=== PATIENT | female | born 1950 | race Caucasian/White ===

== ENCOUNTER → 2017-11-17 | Day surgery (SDC) | payer MEDICARE ==
[2017-11-15 11:16] LABS: BASOPHILS % 0.3 % (0.0-1.0); EOSINOPHILS # (AUTO) 0.2 (0.0-0.4); EOSINOPHILS % 3.3 % (0.0-6.0); HEMATOCRIT 33.3 % (34.2-44.1); HEMOGLOBIN 11.2 g/dL (12.0-16.0); LYMPHOCYTES # (AUTO) 2.1 (1.0-3.2); MEAN CORPUSCULAR HEMOGLOBIN 32.1 pg (28-32); MEAN CORPUSCULAR HGB CONC 33.6 g/dL (31-35); MEAN CORPUSCULAR VOLUME 95.4 fL (81-99); MONOCYTES # (AUTO) 0.4 (0.2-0.8); MONOCYTES % 6.8 % (4.4-11.3); NEUTROPHILS % 52.4 % (38.7-80.0); PLATELET COUNT 192 x10e3/uL (140-360); RED BLOOD COUNT 3.49 x10e6/uL (3.6-5.1); RED CELL DISTRIBUTION WIDTH 13.8 % (11.7-14.4)
[2017-11-15 11:48] LABS: ANION GAP 12.2 mmol/L (8-16); CALCIUM 9.6 mg/dL (8.4-10.2); CREATININE, SERUM 0.95 mg/dL (0.57-1.11); POTASSIUM 5.2 mmol/L (3.5-5.1)
--- NOTE | 2017-11-15 11:51 | Diagnostic Imaging Report ---
PROCEDURE: Frontal and lateral views of the chest. COMPARISON: None available. INDICATIONS: PRE-OP KNEE FINDINGS: Lines/tubes: None. Lungs: The lungs are well inflated and clear. There is no evidence of pneumonia or pulmonary edema. Pleura: There is no pleural effusion or pneumothorax. Heart and mediastinum: The heart and the mediastinum are normal. Bones: No acute bony abnormality. Right humeral head sclerotic focus, likely a bone island. IMPRESSION: 1. No acute cardiopulmonary disease. Dictated by: Bernard Peres M.D. on 11/15/2017 at 11:52 Electronically approved by: Bernard Peres M.D. on 11/15/2017 at 11:52
[~2017-11-17] MED LIST: ASPIRIN81 MG PO; BUPIVACAINE 0.5%/EPI 30 ML SDV INJ ONE; BYDUREON2 MG IM; CALCIUM 500 +1 EAC2 PO; CEFAZOLIN SOD 2 GM/D5W 50ML 50 ML IV ONE; CELEBREX200 MG PO; CRANBERRY CONC1 EAC1 PO; DEXAMETHASONE SOD PHOS INJ 4 MG/ML VIAL ONE; FENTANYL CITRATE/PF 100MCG/2 ML INJ ONE; FUROSEMIDE; GLIMEPIRIDE; GLIMEPIRIDE1 MG PO; GLIMEPIRIDE2 MG PO; LIDOCAINE HCL 2% LOCAL INJ 5 ML SDV VIAL INJ ONE; LISINOPRIL; LISINOPRIL-HCT1 EAC2 PO; MAGNESIUM250 MG PO; METFORMIN HCL500 MG PO; METOCLOPRAMIDE HCL 10 MG/2ML VIAL ONE; MIDAZOLAM HCL 2 MG/2 ML VIAL ONE; MULTIVITAMINS1 EAC7 PO; OMEGA 3 FISH O1 EACH PO; OMEPRAZOLE40 MG PO; ONDANSETRON HCL INJ 2 MG/ML VIAL ONE; PHENYLEPHRINE HCL 1% 10 MG/ML VIAL ONE; PIOGLITAZONE15 MG PO; POTASSIUM GLUCONATE PO; POTASSIUM99 M1 PO; PRILOSEC; PROPOFOL IV EMULSION 10 MG/ML 50 ML VIAL ONE; SEVOFLURANE INHAL SOLN 250 ML PEN BTL ONE; SIMVASTATIN10 MG PO; [UNRECOGNIZED DRUG - MIXTURE] TOP
--- OUTSIDE RECORDS SUMMARY | 2017-11-17 09:27 | XMS REPORT ---
Author Author [facility] Address Unknown Phone Unavailable Care Team Providers Care Senior Financial Consultant Name Role Phone BETO YANG Unavailable Unavailable Problems This patient has no known problems. Allergies, Adverse Reactions, Alerts This patient has no known allergies or adverse reactions. Medications This patient has no known medications. Results Test Description Test Time Test Comments Text Results Atomic Results Result Comments CHEST 2 VIEWS [facility] [address] [address] Patient Name: BIN MARTINEZ MR #: [id number] : 1950 Age/Sex: 67/F Req #: [id number] Adm Physician: Ordered by: BETO YANG MD Report #: [id number] Location: OR Room/Bed: Procedure: [id number] DX/CHEST 2 VIEWS Exam Date: 11/15/17 Exam Time: 1146 REPORT STATUS: Signed PROCEDURE: Frontal and lateral views of the chest. COMPARISON: None available. INDICATIONS: PRE-OP KNEE FINDINGS: Lines/tubes: None. Lungs: The lungs are well inflated and clear. There is no evidence of pneumonia or pulmonary edema. Pleura: There is no pleural effusion or pneumothorax. Heart and mediastinum: The heart and the mediastinum are normal. Bones: No acute bony abnormality. Right humeral head sclerotic focus, likely a bone island. IMPRESSION: 1. No acute cardiopulmonary disease. Dictated by : Bernard Peres M.D. on 11/15/2017 at 11:52 Electronically approved by: Bernard Peres M.D. on 11/15/2017 at 11:52 Dictated By: BERNARD PERES MD 1152 Transcribed By: JOHN on 11/15/17 1152 COPY TO: BETO YANG MD
--- NOTE | 2017-11-18 00:33 | Operative Report ---
DATE OF PROCEDURE: November 17, 2017 PREOPERATIVE DIAGNOSES: 1. Right knee medial meniscus tear. 2. Right knee degenerative joint disease of the knee. POSTOPERATIVE DIAGNOSES: 1. Right knee medial meniscus tear. 2. Right knee lateral meniscus tear. 3. Right knee degenerative joint disease of the knee. 4. Symptomatic medial shelf plica. OPERATIONS AND PROCEDURES PERFORMED: Patient underwent: 1. Right knee examination under anesthesia. 2. Right knee arthroscopy. 3. Right knee partial medial meniscectomy. 4. Right knee partial lateral meniscectomy. 5. Right knee resection of plica. 6. Right knee chondroplasty of the patella, the trochlea, the medial femoral condyle, medial tibial plateau, lateral femoral condyle, and lateral tibial plateau. PARTS SALVAGER: None. ANESTHESIA: General endotracheal intubation anesthesia. IV FLUIDS: Per the anesthesia record. BRIEF DESCRIPTION OF PATIENT'S OPERATIVE PROCEDURE: Ms. Mendez was taken to the operating room and placed in the supine position on the operating room table. Following the induction of general anesthesia as well as endotracheal intubation, the patient's right lower extremity was examined under anesthesia. She was found to have mild effusion within the knee joint, but otherwise ligamentously stable knee. The patient's lower extremity was prepped and draped in standard surgical fashion. A 2-portal technique was used to provide this patient arthroscopic evaluation of the knee joint. Examination of the suprapatellar pouch and medial and lateral gutters found no evidence of loose bodies. There was, however, evidence of chondromalacia of the patellar and trochlear surfaces. There was also a large inflamed medial shelf plica interdigitating between the patella and the trochlea. Scope was advanced in medial compartment and examination of the medial compartment demonstrated a torn and macerated medial meniscus. There was also chondromalacia of the articulating surfaces. A combination of biting forceps and a motorized shaver was used to resect the torn portion of the meniscus. Chondroplasties of the medial femoral condyle and medial tibial plateau were performed at that time. Scope was advanced into the intercondylar notch, and the anterior cruciate ligament was identified and found to be intact. Scope was advanced in lateral compartment. Examination of the lateral compartment also demonstrated a torn lateral meniscus. There was also chondromalacia of articulating surfaces. A combination of biting forceps and motorized shaver was used to resect the torn portion of the meniscus. Chondroplasties of the lateral femoral condyle and lateral tibial plateau were performed at this time. The scope was then placed in the suprapatellar pouch, and chondroplasties of the patella and trochlea were performed. The plica was resected at this time. The knee was deflated of its sterile normal saline. Each of the portal sites was closed using 4-0 nylon suture. The portal sites as well as the knee itself were injected with 0.5% Marcaine with epinephrine. Sterile dressings were applied, and the patient was awakened and taken to postanesthesia care unit in stable condition. Job#: [id number]
== END | disposition home or self-care (01) ==
LOC: OR 09:25
PROVIDERS: ATTEND Specialist
PROC: 0SBC4ZZ Excision of Right Knee Joint, Percutaneous Endoscopic Approach (ICD-10-PCS; 2017-11-17)
PROC: 0SBC4ZZ Excision of Right Knee Joint, Percutaneous Endoscopic Approach (ICD-10-PCS; principal; 2017-11-17 12:30)
DX: S83.221A Peripheral tear of medial meniscus, current injury, right knee, initial encounter (principal); S83.281A Other tear of lateral meniscus, current injury, right knee, initial encounter; M17.11 Unilateral primary osteoarthritis, right knee; M67.51 Plica syndrome, right knee; M22.41 Chondromalacia patellae, right knee; Z68.33 Body mass index [BMI] 33.0-33.9, adult; K21.9 Gastro-esophageal reflux disease without esophagitis; E11.9 Type 2 diabetes mellitus without complications; E78.00 Pure hypercholesterolemia, unspecified; I10 Essential (primary) hypertension; E78.5 Hyperlipidemia, unspecified; Z88.1 Allergy status to other antibiotic agents; X58.XXXA Exposure to other specified factors, initial encounter; Z01.810 Encounter for preprocedural cardiovascular examination; Z01.812 Encounter for preprocedural laboratory examination; Z01.818 Encounter for other preprocedural examination; Z79.84 Long term (current) use of oral hypoglycemic drugs; Z79.82 Long term (current) use of aspirin
CPT/HCPCS: 29880; 36415 ×2; 71046; 80048; 82948; 85025; 93005; J1100; J2001; J2250; J2370; J2405; J2765

== ENCOUNTER → 2018-11-11 | Outpatient (CLI) | payer OTHER ==
[~2018-11-11] MED LIST changes: -BUPIVACAINE 0.5%/EPI 30 ML SDV INJ ONE; -CEFAZOLIN SOD 2 GM/D5W 50ML 50 ML IV ONE; -DEXAMETHASONE SOD PHOS INJ 4 MG/ML VIAL ONE; -FENTANYL CITRATE/PF 100MCG/2 ML INJ ONE; +IOPAMIDOL 370 MG/ML 200 ML INFUS..BTL INJ ONE; -LIDOCAINE HCL 2% LOCAL INJ 5 ML SDV VIAL INJ ONE; -METOCLOPRAMIDE HCL 10 MG/2ML VIAL ONE; -MIDAZOLAM HCL 2 MG/2 ML VIAL ONE; -ONDANSETRON HCL INJ 2 MG/ML VIAL ONE; -PHENYLEPHRINE HCL 1% 10 MG/ML VIAL ONE; -PROPOFOL IV EMULSION 10 MG/ML 50 ML VIAL ONE; -SEVOFLURANE INHAL SOLN 250 ML PEN BTL ONE; +SODIUM CHLORIDE 0.9% 50ML 50 ML ONE
--- NOTE | 2018-11-11 12:30 | Diagnostic Imaging Report ---
EXAMINATION: CT of the abdomen and pelvis with contrast. TECHNIQUE: Spiral CT images of the abdomen and pelvis were performed from the lung bases to the lesser trochanters after the intravenous administration of 100 cc Isovue-370 and the oral administration of water. Coronal and sagittal reformatted images were obtained. COMPARISON: None. CLINICAL HISTORY:Anemia, abdominal pain DISCUSSION: ABDOMEN/PELVIS: LOWER THORAX:Subsegmental atelectasis in the dependent lower lobes. HEPATOBILIARY: No focal hepatic lesions. No intra-or extrahepatic biliary ductal dilation. The gallbladder is normal. SPLEEN: No splenomegaly. PANCREAS: No focal masses or ductal dilatation. ADRENALS: No adrenal nodules. KIDNEYS/URETERS: No hydronephrosis, stones, or solid mass lesions. PELVIC ORGANS/BLADDER: Urinary bladder is incompletely distended but otherwise unremarkable. Uterus is anteflexed and normal for age. No adnexal mass. PERITONEUM/RETROPERITONEUM: No free air or fluid. LYMPH NODES: No intra-abdominal, retroperitoneal, pelvic or inguinal lymphadenopathy. VESSELS: Atherosclerotic calcification of the abdominal aorta and iliac arterial systems without aneurysmal dilatation. 2 left renal arteries and a single right renal artery. Portal vein, splenic vein, and central superior mesenteric vein are patent. GI TRACT: Large bowel shows no evidence of distention or wall thickening. Scattered sigmoid diverticula without adjacent inflammatory change. Appendix is normal. Stomach is collapsed with prominent rugal folds. No small bowel dilatation to suggest obstruction. BONES AND SOFT TISSUE: No osseous destructive lesions. The bones are diffusely osteopenic. Multilevel degenerative disc changes and facet arthropathy of the lumbar spine. No focal soft tissue abnormalities. IMPRESSION: No acute intra-abdominal or pelvic CT abnormalities. Sigmoid diverticulosis without findings of diverticulitis. Atherosclerotic vascular disease. Signed by: Dr. Javad Gonzalez M.D. on 11/11/2018 12:27 PM
== END ==
LOC: CT 09:47
PROVIDERS: ATTEND Internal Medicine Medical Oncology
DX: R10.9 Unspecified abdominal pain (principal); D64.9 Anemia, unspecified
CPT/HCPCS: 74177; Q9967